=== PATIENT | female | born 1990 | race African-American/Black ===

== ENCOUNTER 2017-09-13 01:47 | Emergency (ER) | payer SELFPAY ==
[2017-09-13 01:57] VITALS: BP 131/97; PULSE 147; TEMP 98.3; BMI 22.1
[2017-09-13] MEDS ORDERED: SODIUM CHLORIDE 1,000 ML IV STA (01:59)
--- NOTE | 2017-09-13 02:02 | PDOC ---
History of Present Illness - General Chief Complaint: Chest Pain Stated Complaint: CHEST TIGHTNESS Time Seen by Provider: 09/13/17 01:57 History Source: Patient - History of Present Illness Initial Comments: 09/13/17 04:31 27-year-old female brought in by boyfriend complaining of palpitations and feeling shaky. Patient reports that 2 hours prior to arrival she smoked marijuana. An hour and a half after patient was feeling chest tightness and palpitations. Denies past medical history Past History - Past Medical History Allergies/Adverse Reactions: Allergies Allergy/AdvReac Type Severity Reaction Status Date / Time No Known Allergies Allergy Verified 09/13/17 01:57 COPD: No - Immunization History Immunization Up to Date: Yes - Suicide/Smoking/Psychosocial Hx Smoking History: Never smoked Substance Use Type: None Review of Systems - Review of Systems Able to Perform ROS?: Yes Is the patient limited Albanian proficient: No Constitutional: No: Symptoms Reported, See HPI, Chills, Diaphoresis, Fever, Loss of Appetite, Malaise, Night Sweats, Weakness, Weight Stable, Unintentional Wgt. Loss, Unexplained wgt Loss, Other HEENTM: No: Symptoms Reported, See HPI, Eye Pain, Blurred Vision, Tearing, Recent change in vision, Double Vision, Cataracts, Ear Pain, Ocular Prothesis, Ear Discharge, Nose Pain, Nose Congestion, Tinnitus, Nose Bleeding, Hearing Loss , Throat Pain, Throat Swelling, Mouth Pain, Dental Problems, Difficulty Swallowing, Mouth Swelling, Other Respiratory: No: Symptoms reported, See HPI, Cough, Orthopnea, Shortness of Breath, SOB with Exertion, SOB at Rest, Stridor, Wheezing, Productive cough, Hemoptysis, Other Cardiac (ROS): Yes: Chest Pain, Lightheadedness, Palpitations ABD/GI: No: Symptoms Reported, See HPI, Abdominal Distended, Abd. Pain w/ defecation, Blood Streaked Bowels, Constipated, Diarrhea, Difficulty Swallowing , Nausea, Poor Appetite, Poor Fluid Intake, Rectal Bleeding, Vomiting, Indigestion, Abdominal cramping, Tarry Stools, Other : No: Symptoms Reported, See HPI, Burning, Dysuria, Discharge, Frequency, Flank Pain, Hematuria, Incontinence, Pain, Urgency, Testicular Mass, Testicular Swelling, Lesions, Testicular Pain, Other *Physical Exam - Vital Signs Last Vital Signs Temp Pulse Resp BP Pulse Ox 98.3 F 147 H 20 131/97 98 09/13/17 01:55 09/13/17 01:55 09/13/17 01:55 09/13/17 01:55 09/13/17 01:55 - Physical Exam General Appearance: Yes: Appropriately Dressed Respiratory/Chest: positive: Lungs Clear, Normal Breath Sounds Cardiovascular: positive: Regular Rate, Tachycardia Heart Score/ECG Review - ECG Intrepretation Rhythm: Regular Rhythm Comment:: 09/13/17 04:32 sinus tachycardia: 144 ED Treatment Course - LABORATORY CBC & Chemistry Diagram: 09/13/17 02:04 09/13/17 02:04 - ADDITIONAL ORDERS Additional order review: Laboratory Results 09/13/17 09/13/17 09/13/17 02:32 02:04 02:04 PT with INR INR Sodium 138 Potassium 3.3 L Chloride 102 Carbon Dioxide 27 Anion Gap 9 BUN 13 Creatinine 0.9 Creat Clearance w eGFR > 60 Random Glucose 129 H Calcium 8.8 Magnesium 2.0 Total Bilirubin 0.3 AST 15 ALT 26 Alkaline Phosphatase 90 Creatine Kinase 103 Troponin I < 0.02 Total Protein 7.7 Albumin 3.8 Serum , Qual Negative Urine Color Straw Urine Appearance Clear Urine pH 6.0 Ur Specific [place] 1.003 Urine Protein Negative Urine Glucose (UA) Negative Urine Ketones Negative Urine Blood 3+ H Urine Nitrite Negative Urine Bilirubin Negative Urine Urobilinogen Negative Ur Leukocyte Esterase Negative Urine WBC (Auto) <1 Urine RBC (Auto) 1 Ur Epithelial Cells Rare Urine Bacteria Rare 09/13/17 02:04 PT with INR 11.90 INR 1.05 Sodium Potassium Chloride Carbon Dioxide Anion Gap BUN Creatinine Creat Clearance w eGFR Random Glucose Calcium Magnesium Total Bilirubin AST ALT Alkaline Phosphatase Creatine Kinase Troponin I Total Protein Albumin Serum , Qual Urine Color Urine Appearance Urine pH Ur Specific [place] Urine Protein Urine Glucose (UA) Urine Ketones Urine Blood Urine Nitrite Urine Bilirubin Urine Urobilinogen Ur Leukocyte Esterase Urine WBC (Auto) Urine RBC (Auto) Ur Epithelial Cells Urine Bacteria 09/13/17 02:04 RBC 4.71 MCV 84.9 MCHC 33.4 RDW 13.0 MPV 8.6 Neutrophils % 46.1 Lymphocytes % 41.2 H Monocytes % 9.3 Eosinophils % 2.8 Basophils % 0.6 - RADIOLOGY Radiology Studies Ordered: Category Date Time Status CHEST X-RAY PORTABLE* [RAD] Stat Radiology 09/13/17 01:58 Taken - Medications Given in the ED: ED Medications Discontinued Medications Generic Name Dose Route Start Last Admin Trade Name Hanna PRN Reason Stop Dose Admin Sodium Chloride 1,000 mls @ 1,000 mls/hr 09/13/17 01:59 09/13/17 02:52 Normal Saline - IV 09/13/17 02:58 1,000 mls/hr ASDIR STA Administration Lorazepam 1 mg 09/13/17 03:30 09/13/17 03:51 Ativan - PO 09/13/17 03:31 1 mg ONCE ONE Administration *DC/Admit/Observation/Transfer Diagnosis at time of Disposition: Tachycardia - Discharge Dispostion Disposition: HOME - Referrals - Patient Instructions Printed Discharge Instructions: DI for Atypical Chest Pain Additional Instructions: please follow up with your doctor as soon as possible. return to the ER if symptoms worsen. - Post Discharge Activity Forms/Work/School Notes: Back to Work
[2017-09-13 02:11] LABS: BASO % 0.6 % (0-2.0); EOS % 2.8 % (0-4.5); HEMOGLOBIN 13.3 GM/dL (10.7-15.3); LYMPH % 41.2 % (8-40); MCH 28.3 pg (25.7-33.7); MCHC 33.4 g/dl (32.0-36.0); MEAN CELL VOLUME 84.9 fl (80-96); MEAN PLT VOLUME 8.6 fl (7.5-11.1); MONO % 9.3 % (3.8-10.2); NEUT % 46.1 % (42.8-82.8); PLATELET COUNT 296 K/MM3 (134-434); RBC 4.71 M/mm3 (3.60-5.2); WHITE BLOOD COUNT 7.9 K/mm3 (4.0-10.0)
[2017-09-13 02:23] LABS: INR 1.05 (0.82-1.09); PROTHROMBIN TIME (PATIENT) 11.9 SEC (9.7-13.0)
[2017-09-13 02:38] LABS: ALBUMIN 3.8 g/dl (3.4-5.0); ANION GAP 9 (8-16); BILIRUBIN,TOTAL 0.3 mg/dL (0.2-1.0); BLOOD UREA NITROGEN 13 mg/dL (7-18); CALCIUM 8.8 mg/dL (8.5-10.1); CHLORIDE 102 mmol/L (98-107); CO2 27 mmol/L (21-32); CREATININE 0.9 mg/dL (0.55-1.02); GLUCOSE,RANDOM 129 mg/dL (74-106); POTASSIUM 3.3 mmol/L (3.5-5.1); SGOT/AST 15 U/L (15-37); SGPT/ALT 26 U/L (12-78); SODIUM 138 mmol/L (136-145); TOT PROT 7.7 g/dl (6.4-8.2)
[2017-09-13 02:41] LABS: ALK PHOS 90 U/L (45-117)
[2017-09-13 02:42] LABS: URINE APPEARANCE CLEAR; URINE BILIRUBIN NEGATIVE (<2.0 mg/dL); URINE COLOR STRAW; URINE GLUCOSE (UA) NEGATIVE (NEGATIVE); URINE KETONE NEGATIVE (NEGATIVE); URINE LEUK ESTERASE NEGATIVE (NEGATIVE); URINE NITRITE NEGATIVE (NEGATIVE); URINE PROTEIN NEGATIVE (NEGATIVE); URINE UROBILINOGEN NEGATIVE mg/dL (0.2-1.0)
[2017-09-13 02:44] LABS: EPI CELLS RARE /HPF (FEW); URINE BACTERIA RARE /hpf (NONE SEEN)
[2017-09-13] MEDS ORDERED: LORazepam 1 MG TABLET PO ONE (03:30)
[2017-09-13] MEDS ORDERED: LORazepam 0.5 MG TABLET ONE (03:50)
--- NOTE | 2017-09-13 10:42 | EKG ---
Test Reason : Blood Pressure : / mmHG Vent. Rate : 144 BPM Atrial Rate : 144 BPM P-R Int : 000 ms QRS Dur : 090 ms QT Int : 342 ms P-R-T Axes : 000 026 063 degrees QTc Int : 529 ms SINUS TACHYCARDIA RSR' OR QR PATTERN IN V1 SUGGESTS RIGHT VENTRICULAR CONDUCTION DELAY SEPTAL INFARCT , AGE UNDETERMINED ABNORMAL ECG NO PREVIOUS ECGS AVAILABLE Confirmed by CHARLES BARRAZA, FIORELLA ([id number]) on 09/13/2017 10:41:59 AM Referred By: Confirmed By:FIORELLA SOTO MD
[2017-09-13 14:05] LABS: COCAINE, UR NEGATIVE ng/ml (CUTOFF=300); METHADONE, UR NEGATIVE ng/ml (CUTOFF=300); OPIATES, URI NEGATIVE ng/ml (CUTOFF=300); PHENCYCLIDINE,URINE NEGATIVE ng/ml (CUTOFF=25); URINE AMPHETAMINES NEGATIVE ng/ml (CUTOFF=500); URINE BARBITURATES NEGATIVE ng/ml (CUTOFF=200); URINE BENZODIAZEPINES NEGATIVE ng/ml (CUTOFF=200)
== END 2017-09-13 04:55 | disposition home or self-care (01) ==
LOC: JER 01:47
PROC: 3E0337Z Introduction of Electrolytic and Water Balance Substance into Peripheral Vein, Percutaneous Approach (ICD-10-PCS; principal; 2017-09-13)
DX: R00.0 Tachycardia, unspecified (principal)
CPT/HCPCS: 36415; 71045-TC-FY; 80053; 80307; 81003; 81015; 82550; 83735; 84484; 84703; 85025; 85610; 93005; 93010; 99282-25; J7030

== ENCOUNTER 2018-06-07 02:25 | Emergency (ER) | payer OTHER ==
[2018-06-07 02:48] VITALS: BMI 30.1
[2018-06-07] MEDS ORDERED: FAMOTIDINE 20 MG/50 ML IVPB 20 MG/50 ML MG IVPB ONE ×2 (03:03→03:16)
[2018-06-07] MEDS ORDERED: METOCLOPRAMIDE HCL INJECTION 10 MG/2 ML VIAL IVPUSH ONE (03:03)
[2018-06-07] MEDS ORDERED: SODIUM CHLORIDE 1,000 ML IV STA (03:03)
--- NOTE | 2018-06-07 03:03 | PDOC ---
Attending Attestation - Resident Resident Name: Nikhil Abraham - ED Attending Attestation I have performed the following: I have examined & evaluated the patient, The case was reviewed & discussed with the resident, I agree w/resident's findings & plan - HPI HPI: 06/07/18 03:10 28-year-old female, 35 weeks to stay solids with vomiting Patient states she vomited mucus mixed with blood, she has a picture on her phone of the vomitus There is no associated diarrhea abdominal pain vaginal bleeding or fever - Physicial Exam PE: 06/07/18 03:11 Agree with resident's exam - Medical Decision Making 06/07/18 03:11 28-year-old gravid female with a vomiting/hematemesis by history Bedside ultrasound performed to confirm live fetus Labs, IV fluids, Reglan and Pepcid Plan for discharge home if improved with outpatient OB follow-up
[2018-06-07] MEDS ORDERED: METOCLOPRAMIDE HCL INJECTION 10 MG/2 ML VIAL ONE (03:16)
[2018-06-07 03:24] LABS: BASO % 0.7 % (0-2.0); EOS % 0.9 % (0-4.5); HEMATOCRIT 34.7 % (32.4-45.2); HEMOGLOBIN 11.8 GM/dL (10.7-15.3); LYMPH % 23.9 % (8-40); MCH 27.7 pg (25.7-33.7); MEAN CELL VOLUME 81.5 fl (80-96); MEAN PLT VOLUME 7.9 fl (7.5-11.1); MONO % 9.2 % (3.8-10.2); NEUT % 65.3 % (42.8-82.8); PLATELET COUNT 279 K/MM3 (134-434); RBC 4.26 M/mm3 (3.60-5.2); RDW 13.6 % (11.6-15.6); WHITE BLOOD COUNT 10.2 K/mm3 (4.0-10.0)
[2018-06-07 03:34] LABS: URINE APPEARANCE SLCLOUDY; URINE BILIRUBIN NEGATIVE (<2.0 mg/dL); URINE COLOR LTYELLOW; URINE GLUCOSE (UA) 3+ (NEGATIVE); URINE KETONE NEGATIVE (NEGATIVE); URINE LEUK ESTERASE 3+ (NEGATIVE); URINE NITRITE NEGATIVE (NEGATIVE); URINE PROTEIN NEGATIVE (NEGATIVE); URINE UROBILINOGEN NEGATIVE mg/dL (0.2-1.0)
--- NOTE | 2018-06-07 03:43 | PDOC ---
History of Present Illness - General Chief Complaint: Vomiting Blood Stated Complaint: 8 MONTHS VOMITING BLOOD Time Seen by Provider: 06/07/18 02:42 History Source: Patient Exam Limitations: No Limitations - History of Present Illness Initial Comments: 06/07/18 03:19 Patient is a 28F at 8 months here today complaining of vomiting that started this morning. Patient has pictures showing small amount of bright red blood in vomit. Denies fevers, chills. Denies abdominal pain. Patient states that she ate later than normal today and has been having issues with GERD. Denies chest pain and shortness of breath. Denies dysuria, vaginal bleeding. Past History - Past Medical History Allergies/Adverse Reactions: Allergies Allergy/AdvReac Type Severity Reaction Status Date / Time No Known Allergies Allergy Verified 06/07/18 02:34 Home Medications: Ambulatory Orders Vitamins (Sjr) - 1 tab PO DAILY 05/14/18 Nitrofurantoin Monohyd/M-Cryst [Macrobid -] 100 mg PO BID #10 capsule 06/07/18 COPD: No - Immunization History Immunization Up to Date: Yes - Suicide/Smoking/Psychosocial Hx Smoking History: Never smoked Have you smoked in the past 12 months: No Information on smoking cessation initiated: No Hx Alcohol Use: No Drug/Substance Use Hx: No Substance Use Type: None Review of Systems - Review of Systems Able to Perform ROS?: Yes Comments:: 06/07/18 03:43 GENERAL/CONSTITUTIONAL: No fever or chills. No weakness. HEAD, EYES, EARS, NOSE AND THROAT: No change in vision. No ear pain or discharge. No sore throat. CARDIOVASCULAR: No chest pain or shortness of breath RESPIRATORY: No cough, wheezing, or hemoptysis. GASTROINTESTINAL: +nausea, +vomiting, no diarrhea or constipation. GENITOURINARY: No dysuria, frequency, or change in urination. MUSCULOSKELETAL: No joint or muscle swelling or pain. No neck or back pain. SKIN: No rash NEUROLOGIC: No headache, vertigo, loss of consciousness, or change in strength/ sensation. HEMATOLOGIC/LYMPHATIC: No anemia, easy bleeding, or history of blood clots. ALLERGIC/IMMUNOLOGIC: No hives or skin allergy. *Physical Exam - Vital Signs Last Vital Signs Temp Pulse Resp BP Pulse Ox 98.5 F 120 H 18 129/93 100 06/07/18 02:34 06/07/18 02:34 06/07/18 02:34 06/07/18 02:34 06/07/18 02:34 - Physical Exam Comments: 06/07/18 03:51 GENERAL: Awake, alert, and fully oriented, in no acute distress HEAD: No signs of trauma, normocephalic, atraumatic EYES: PERRLA, EOMI, sclera anicteric, conjunctiva clear ENT: Auricles normal inspection, hearing grossly normal, nares patent, oropharynx clear without exudates. Moist mucosa NECK: Normal ROM, supple, no lymphadenopathy, JVD, or masses LUNGS: No distress, speaks full sentences, clear to auscultation bilaterally HEART: Regular rate and rhythm, normal S1 and S2, no murmurs, rubs or gallops, peripheral pulses normal and equal bilaterally. ABDOMEN: Gravid, nontender, normoactive bowel sounds. No guarding, no rebound. No masses EXTREMITIES: Normal inspection, Normal range of motion, no edema. No clubbing or cyanosis. NEUROLOGICAL: Cranial nerves II through XII grossly intact. Normal speech, normal gait, no focal sensorimotor deficits SKIN: Warm, Dry, normal turgor, no rashes or lesions noted. Moderate Sedation - Procedure Monitoring Vital Signs: Procedure Monitoring Vital Signs Temperature 98.5 F 06/07/18 02:34 Pulse Rate 120 H 06/07/18 02:34 Respiratory Rate 18 06/07/18 02:34 Blood Pressure 129/93 06/07/18 02:34 O2 Sat by Pulse Oximetry (%) 100 06/07/18 02:34 ED Treatment Course - LABORATORY CBC & Chemistry Diagram: 06/07/18 03:13 06/07/18 03:13 Medical Decision Making - Medical Decision Making 06/07/18 03:51 Patient is 28F at 8 months here today with vomiting. Vitals normal and stable. No signs of large GI bleed, suspect Alejandra-Damián. Nontender abdomen. POCUS US shows normal heart rate and movement. Will evaluate with cbc, cmp, lipase, ua/uc, likely will d/c to l&d. *DC/Admit/Observation/Transfer Diagnosis at time of Disposition: UTI (urinary tract infection), Vomiting - Discharge Dispostion Disposition: HOME Condition at time of disposition: Good Decision to Admit order: No - Prescriptions Prescriptions: Nitrofurantoin Monohyd/M-Cryst [Macrobid -] 100 mg PO BID #10 capsule - Referrals Referrals: Mikal Cam [Primary Care Provider] - - Patient Instructions Printed Discharge Instructions: DI for Urinary Tract Infection (UTI) Additional Instructions: Please follow up tomorrow with your OBGYN. Please return if you have any new, worsening or concerning symptoms, especially abdominal pain, repeated vomiting, and shortness of breath. - Post Discharge Activity
[2018-06-07 03:50] LABS: ALBUMIN 2.6 g/dl (3.4-5.0); ALK PHOS 149 U/L (45-117); ANION GAP 6 MMOL/L (8-16); BILIRUBIN,TOTAL 0.2 mg/dL (0.2-1); BLOOD UREA NITROGEN 9 mg/dL (7-18); CALCIUM 8.5 mg/dL (8.5-10.1); CHLORIDE 107 mmol/L (98-107); CO2 26 mmol/L (21-32); CREATININE 0.6 mg/dL (0.55-1.3); GLUCOSE,RANDOM 87 mg/dL (74-106); LIPASE 129 U/L (73-393); SGOT/AST 15 U/L (15-37); SGPT/ALT 20 U/L (13-61); SODIUM 139 mmol/L (136-145); TOT PROT 6.8 g/dl (6.4-8.2)
[2018-06-07 04:14] LABS: EPI CELLS MANY /HPF (FEW); URINE BACTERIA RARE /hpf (NONE SEEN); URINE MUCUS RARE
[2018-06-07] MEDS ORDERED: NITROFURANTOIN MACROCRYSTAL 50 MG CAPSULE (FP) PO SCH (04:30)
[2018-06-07] MEDS ORDERED: NITROFURANTOIN MACROCRYSTAL 50 MG CAPSULE (FP) ONE (04:34)
[2018-06-07 05:10] VITALS: TEMP 97.9
[2018-06-07 05:18] VITALS: BP 122/77; PULSE 87
== END 2018-06-07 05:50 | disposition home or self-care (01) ==
LOC: JER 02:25
PROC: 3E033GC Introduction of Other Therapeutic Substance into Peripheral Vein, Percutaneous Approach (ICD-10-PCS; principal; 2018-06-07)
PROC: 3E033GC Introduction of Other Therapeutic Substance into Peripheral Vein, Percutaneous Approach (ICD-10-PCS; 2018-06-07)
DX: O26.893 Other specified pregnancy related conditions, third trimester (principal); O23.33 Infections of other parts of urinary tract in pregnancy, third trimester; Z3A.35 35 weeks gestation of pregnancy
CPT/HCPCS: 36415; 80053; 81003; 81015; 83690; 85025; 87086; 99281-25; J7030

== ENCOUNTER 2018-07-01 03:20 | Inpatient (IN) | payer OTHER ==
[2018-07-01] MEDS ORDERED: ELECTROLYTE-148 SOLN 1,000 ML IV SCH (03:40)
[2018-07-01] MEDS ORDERED: AMPICILLIN SODIUM 2 GM VIAL ONE (04:44)
[2018-07-01] MEDS ORDERED: AMPICILLIN - 2 GM in SODIUM CHLORIDE 100 ML IVPB ONE (04:45)
[2018-07-01] MEDS ORDERED: FENTANYL/BUPIVACAINE/NS/PF - PCEA - 50 ML DISP.SYRIN EP ONE (05:34)
[2018-07-01 05:35] LABS: BASO % 0.2 % (0-2.0); EOS % 0.1 % (0-4.5); HEMATOCRIT 35.7 % (32.4-45.2); HEMOGLOBIN 11.7 GM/dL (10.7-15.3); LYMPH % 12.5 % (8-40); MCH 25.7 pg (25.7-33.7); MCHC 32.8 g/dl (32.0-36.0); MEAN CELL VOLUME 78.4 fl (80-96); MEAN PLT VOLUME 8.2 fl (7.5-11.1); MONO % 5.4 % (3.8-10.2); NEUT % 81.8 % (42.8-82.8); PLATELET COUNT 266 K/MM3 (134-434); RBC 4.56 M/mm3 (3.60-5.2); RDW 14.3 % (11.6-15.6); WHITE BLOOD COUNT 12.7 K/mm3 (4.0-10.0)
[2018-07-01 05:47] LABS: INR 0.95 (0.83-1.09); PROTHROMBIN TIME (PATIENT) 11.2 SEC (9.7-13.0)
[2018-07-01 05:49] LABS: ACTIVATED PTT 30.1 SECONDS (25.2-36.5)
[2018-07-01 05:52] LABS: ANION GAP 10 MMOL/L (8-16); BLOOD UREA NITROGEN 8 mg/dL (7-18); CALCIUM 8.5 mg/dL (8.5-10.1); CHLORIDE 104 mmol/L (98-107); CO2 23 mmol/L (21-32); CREATININE 0.6 mg/dL (0.55-1.3); GLUCOSE,RANDOM 109 mg/dL (74-106); SODIUM 137 mmol/L (136-145)
[2018-07-01 05:54] VITALS: BMI 28.1
[2018-07-01] MEDS ORDERED: NALOXONE HCL 0.4 MG/ML VIAL IVPUSH PRN (07:46)
[2018-07-01] MEDS ORDERED: AMPICILLIN SODIUM 1 GM VIAL ONE (08:00)
[2018-07-01] MEDS ORDERED: FENTANYL/BUPIVACAINE/NS/PF - PCEA - 50 ML DISP.SYRIN EP SCH (08:00)
[2018-07-01] MEDS ORDERED: LIDOCAINE HCL 1% PRESERVATIVE FREE - 30ML VIAL ONE (08:22)
[2018-07-01] MEDS ORDERED: OXYTOCIN 20 UNITS in 0.9% NS 20 UNIT/1,000 ML INFUS.BAG IV ONE (08:22)
[2018-07-01] MEDS: AMPICILLIN - 1 GM in SODIUM CHLORIDE 100 ML IVPB SCH ×2 (08:45→14:08)
[2018-07-01] MEDS ORDERED: TUBERCULIN PPD 5 TU/0.1ML SYRINGE (IN PATIENT USE ONLY) ID ONE (09:00)
--- NOTE | 2018-07-01 11:16 | HP ---
Past Medical History - Primary Care Physician PCP:: Adrien Garza - Admission Chief Complaint: 28yo P0 with at EGA 39wk admitted with spont labor. History of Present Illness: with spont labor since yesterday. 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: No: Alzheimer's, CVA, Dementia, Migraine, Multiple Sclerosis, Peripheral Neuropathy, Parkinson's, Seizure, Syncope, TIA, Vertigo, Other Cardiovascular: No: AFIB, Aneurysm, Aortic Insufficiency, Aortic Stenosis, CAD, CHF, Deep Vein Thrombosis, HTN, Hyperlipdemia, GA, Mitral Insufficiency, Mitral Stenosis, Murmur, Pulmonary Hypertension, Other Pulmonary: No: Asthma, Bronchitis, Cancer, COPD, O2 Dependent, Pneumonia, Previously Intubated, Pulmonary Embolus, Pulmonary Fibrosis, Sleep Apnea, Other Gastrointestinal: No: Ascites, Cancer, Constipation, Crohn's Disease, Diverticulitis, Diverticulosis, Esophageal Varices, Gastritis, GERD, GI Bleed, Hemorrhoids, Hiatal Hernia, Inflamatory Bowel Disease, Irritable Bowel Disease, Pancreatitis, Peptic Ulcer Disease, Ulcerative Colitis, Other Hepatobiliary: No: Cirrhosis, Cholelithiasis, Cholecystitis, Choledocholithiasis , Hepatitis A, Hepatitis B, Hepatitis C, Other Renal/: No: Renal Failure, Renal Inusuff, BPH, Cancer, Hematuria, Hemodialysis , Neurogenic Bladder, Renal Calculi, UTI, Other Reproductive: Yes: Fibroids ...: 1 ...Para: 0 ... Weeks Gestation by Dates: 39.0 ...EDC by Dates: 07/08/18 ...EDC by Sono: 07/08/18 Heme/Onc: No: Anemia, B12 Deficiency, Bleeding Disorder, Cancer, Current Chemotherapy, Current Radiation Therapy, Hemochromatosis, Hypercoaguable State, Myeloproliferative Synd, Sickle Cell Disease, Sickle Cell Trait, Thrombocytopenia, Other Infectious Disease: No: AIDS, C-Diff, Herpes Zoster, HIV, MRSA, STD's, Tuberculosis, VREF, Other Psych: Yes: Anxiety Musculoskeletal: No: Bursitis, Chronic low back pain, Hemiparesis, Hemiplegia, Osteoarthritis, Paraplegia, Other Rheumatology: No: Fibromyalgia, Gout, Lupus, Rheumatoid Arthritis, Sarcoidosis, Vasculitis, Other ENT: No: Allergic Rhinitis, Sinusitis, Other Endocrine: No: [place]'s Disease, [place]'s Disease, Diabetes Insipidus, Diabetes Mellitus, Hyperparathyroidism, Hyperthyroidism, Hypothyroidism, Osteopenia, SIADH, Other Dermatology: No: Basal Cell, Cellulitis, Eczema, Melanoma, Psoriasis, Squamous Cell, Other - Past Surgical History Past Surgical History: Yes: None Hx Myomectomy: No Hx Transabdominal Cerclage: No - Smoking History Smoking history: Never smoked Have you smoked in the past 12 months: No - Alcohol/Substance Use Hx Alcohol Use: No History of Substance Use: reports: None - Social History ADL: Independent History of Recent Travel: No Home Medications - Allergies Allergies/Adverse Reactions: Allergies Allergy/AdvReac Type Severity Reaction Status Date / Time No Known Allergies Allergy Verified 07/01/18 05:16 - Home Medications Home Medications: Ambulatory Orders Vitamins (Sjr) - 1 tab PO DAILY 07/01/18 Family Disease History - Family Disease History Family History: Unremarkable Review of Systems - Review of Systems Constitutional: reports: Other (Labor) Eyes: reports: No Symptoms HENT: reports: No Symptoms Neck: reports: No Symptoms Cardiovascular: reports: No Symptoms Respiratory: reports: No Symptoms Gastrointestinal: reports: No Symptoms Genitourinary: reports: No Symptoms Breasts: reports: No Symptoms Reported Musculoskeletal: reports: No Symptoms Integumentary: reports: No Symptoms Neurological: reports: No Symptoms Endocrine: reports: No Symptoms Hematology/Lymphatic: reports: No Symptoms Psychiatric: reports: No Symptoms Pain Intensity: 0 (epidural) Physical Exam - Maternity Vital Signs: Vital Signs Temperature 97.9 F 07/01/18 10:00 Pulse Rate 115 H 07/01/18 10:30 Respiratory Rate 18 07/01/18 10:30 Blood Pressure 109/71 07/01/18 10:30 O2 Sat by Pulse Oximetry (%) 99 07/01/18 10:30 Constitutional: Yes: Well Nourished, No Distress, Calm Eyes: Yes: WNL, Conjunctiva Clear HENT: Yes: WNL, Atraumatic, Normocephalic Neck: Yes: WNL, Supple, Trachea Midline Cardiovascular: Yes: WNL, Regular Rate and Rhythm Lungs: Clear to auscultation, Normal air movement - Abdominal Exam/OB Fundal Height: 40 Number of Fetuses: Single Presentation: Vertex Regularity: Regular Intensity: Mod/Strong Monitor Mode: External Heart Rate (range): 140 Heart Rate Location: Midline Category: I Accelerations: Non-Uniform Decelerations: None - Vaginal Exam/OB Vaginal Bleediing: No Presentation: Vertex/Position - Physical Exam Musculoskeletal: Yes: WNL Extremities: Yes: WNL Edema: LLE: Trace, RLE: Trace Integumentary: Yes: WNL Deep Tendon Reflex Grade: Hyperactive w/clonus +5 ...Motor Strength: WNL Psychiatric: Yes: WNL, Alert, Oriented - Labs Lab Results: CBC, BMP 07/01/18 05:00 07/01/18 05:00 Hemorrhage Risk Assessment - Risk Factors Medium Risk Factors: Yes: None High Risk Factors: Yes: None Risk Score: 1 Risk Level: Medium Risk Imaging - Results Ultrasound: Report Reviewed Assessment/Plan 28yo P0 with at EGA 39wk admitted with spont labor. Fetus with Category I tracing and needs no intervention. Anticipate .
[2018-07-01] MEDS ORDERED: BENZOCAINE 20% 57 GM BOTTLE TP PRN (11:45)
[2018-07-01] MEDS ORDERED: SIMETHICONE 80 MG TAB.CHEW (FP) PO PRN (11:45)
[2018-07-01] MEDS ORDERED: WITCH HAZEL 50% (TUCKS) 40 PAD/JAR PAD TP PRN (11:45)
[2018-07-01] MEDS ORDERED: BENZOCAINE 28 GM HEMORRHOIDAL OINTMENT TP PRN (11:45)
[2018-07-01] MEDS ORDERED: OXYTOCIN 20 UNITS in 0.9% NS 20 UNIT/1,000 ML INFUS.BAG IV SCH (11:45)
[2018-07-01] MEDS ORDERED: METHYLERGONOVINE MALEATE 0.2 MG/1 ML AMP IM PRN (11:45)
[2018-07-01] MEDS ORDERED: SENNOSIDES/DOCUSATE COMBO (SENNA PLUS) TABLET (UD) PO PRN (11:45)
[2018-07-02 06:55] LABS: BASO % 0.8 % (0-2.0); EOS % 0.7 % (0-4.5); HEMATOCRIT 30.3 % (32.4-45.2); HEMOGLOBIN 9.8 GM/dL (10.7-15.3); LYMPH % 23.1 % (8-40); MCH 25.5 pg (25.7-33.7); MCHC 32.4 g/dl (32.0-36.0); MEAN CELL VOLUME 78.8 fl (80-96); MEAN PLT VOLUME 8.3 fl (7.5-11.1); MONO % 7.9 % (3.8-10.2); NEUT % 67.5 % (42.8-82.8); PLATELET COUNT 212 K/MM3 (134-434); RBC 3.85 M/mm3 (3.60-5.2); RDW 14.4 % (11.6-15.6); WHITE BLOOD COUNT 11.1 K/mm3 (4.0-10.0)
--- NOTE | 2018-07-02 08:18 | PN ---
Delivery - Delivery Vaginal Delivery: No Problems, Spontaneous Type of Anesthesia: Local, Epidural Episiotomy/Laceration: Perineal Extension/lac, 1st degree EBL (cc): 300 Delivery, Single - Stages of Labor Date 1st Stage Initiatied: 07/01/18 Time 1st Stage Initiated: 01:00 Date 2nd Stage Initiated: 07/01/18 Time 2nd Stage Initiated: 10:55 Date of Delivery: 07/01/18 Time of Delivery: 11:33 Time Placenta Delivered: 11:40 Placenta: Yes: Spontaneous, Normal Configuration - Condition of Congressional Assistant/Management Engineer Present: No Gender: Female Weight: 2.977 kg Position: Left, OA Total Hours ROM (Hrs/Mins): 40M - 1 Minute Total Score: 9 5 Minutes Total Score: 9 - [place] Feeding Plan Initial Plan: Exclusive throughout hospitalization
--- NOTE | 2018-07-02 08:20 | PN ---
Post Progress Note - Subjective Subjective: Patient without acute complaints. Reports tolerating oral intake without nausea or vomiting. Ambulating without dizziness. Denies fevers or chills. Pain well controlled with oral pain medication. Pumping/breast feeding without issue. Post Day: 1 Type of Delivery: Vital Signs: Vital Signs Temperature 98.0 F 07/02/18 06:00 Pulse Rate 92 H 07/02/18 06:00 Respiratory Rate 20 07/02/18 06:00 Blood Pressure 106/62 07/02/18 06:00 O2 Sat by Pulse Oximetry (%) 99 07/01/18 10:30 Breast Exam: Yes: Soft Uterus: Yes: Fundus Firm, Fundus below umbilicus Abdomen/GI: Yes: Abdomen soft, Passing flatus, Tolerating PO Lochia: Yes: Rubra Lochia, amount: Small Extremities: Yes: Calves non-tender Perineum: Yes: Intact Activity: Ambulating - Labs Labs: CBC WBC 11.1 K/mm3 (4.0-10.0) H 07/02/18 05:10 RBC 3.85 M/mm3 (3.60-5.2) 07/02/18 05:10 Hgb 9.8 GM/dL (10.7-15.3) L 07/02/18 05:10 Hct 30.3 % (32.4-45.2) L D 07/02/18 05:10 MCV 78.8 fl (80-96) L 07/02/18 05:10 MCH 25.5 pg (25.7-33.7) L 07/02/18 05:10 MCHC 32.4 g/dl (32.0-36.0) 07/02/18 05:10 RDW 14.4 % (11.6-15.6) 07/02/18 05:10 Plt Count 212 K/MM3 (134-434) D 07/02/18 05:10 MPV 8.3 fl (7.5-11.1) 07/02/18 05:10 Absolute Neuts (auto) 7.5 K/mm3 (1.5-8.0) 07/02/18 05:10 Neutrophils % 67.5 % (42.8-82.8) 07/02/18 05:10 Lymphocytes % 23.1 % (8-40) D 07/02/18 05:10 Monocytes % 7.9 % (3.8-10.2) 07/02/18 05:10 Eosinophils % 0.7 % (0-4.5) D 07/02/18 05:10 Basophils % 0.8 % (0-2.0) D 07/02/18 05:10 Nucleated RBC % 0 % (0-0) 07/02/18 05:10 Assessment/Plan 28 yo P1 s/p , doing well stable, afebrile. Asymptomatic for anemia. care instructions reviewed. Continue routine care. Ambulation encouraged Discharge instruction reviewed.
--- NOTE | 2018-07-02 08:23 | DS ---
Physical Exam-TRAFFIC I MANAGER Vital Signs: Vital Signs Temperature 98.0 F 07/02/18 06:00 Pulse Rate 92 H 07/02/18 06:00 Respiratory Rate 20 07/02/18 06:00 Blood Pressure 106/62 07/02/18 06:00 O2 Sat by Pulse Oximetry (%) 99 07/01/18 10:30 Constitutional: Yes: Well Nourished, No Distress, Calm Eyes: Yes: WNL, Conjunctiva Clear HENT: Yes: WNL, Atraumatic, Normocephalic Neck: Yes: WNL, Supple, Trachea Midline Cardiovascular: Yes: WNL, Regular Rate and Rhythm Respiratory: Yes: WNL, Regular, CTA Bilaterally Gastrointestinal: Yes: WNL, Normal Bowel Sounds, Soft ...Rectal Exam: Yes: Deferred Renal/: Yes: WNL Internal Exam Deferred: Yes ....Post : Yes: Uterus firm, Uterus non-tender, Slight lochia rubra Breast(s): Yes: WNL Musculoskeletal: Yes: WNL Extremities: Yes: WNL Edema: No Integumentary: Yes: WNL Neurological: Yes: WNL, Alert, Oriented ...Motor Strength: WNL Psychiatric: Yes: WNL, Alert, Oriented Labs: CBC, BMP 07/02/18 05:10 07/01/18 05:00 Delivery - Delivery Vaginal Delivery: No Problems, Spontaneous Type of Anesthesia: Local, Epidural Episiotomy/Laceration: Perineal Extension/lac, 1st degree EBL (cc): 300 Delivery, Single - Stages of Labor Date 1st Stage Initiatied: 07/01/18 Time 1st Stage Initiated: 01:00 Date 2nd Stage Initiated: 07/01/18 Time 2nd Stage Initiated: 10:55 Date of Delivery: 07/01/18 Time of Delivery: 11:33 Time Placenta Delivered: 11:40 Placenta: Yes: Spontaneous, Normal Configuration - Condition of Infant Health And Safety Technician/Junior Underwriter Present: No Infant Gender: Female Weight: 2.977 kg Position: Left, OA Total Hours ROM (Hrs/Mins): 40M - 1 Minute Total Score: 9 5 Minutes Total Score: 9 - [place] Feeding Plan Initial Plan: Exclusive throughout hospitalization Discharge Summary Reason For Visit: LABOR ADMIT Labor at term Procedures: Principal: Hospital Course: Normal recovery Condition: Good - Instructions Diet, Activity, Other Instructions: Physical activity Resume your normal everyday activity as tolerated no heavy lifting or exercise until seen by your surgeon. You may walk unlimited kyle of and climb stairs. You may resume driving the car when you feel safe and comfortable behind the wheel. No sexual activity as instructed. Wound care If you have a bandage, leave it on, and keep dry for 48-72 hours. After that time discard the outer bandage. If they are tapes on the skin under the out of bandage leave them in place. They will peel off in the next 7 to 10 days. Do Not Peel them off. You may shower the day after surgery. If there are tapes present on the skin, you may shower over them. Diet There are no dietary restrictions. Eat healthy, high-fiber foods. Drink 6 to 8 glasses of liquid each day. This will assist in keeping your bowels are regular. Pain management You may take Tylenol or acetaminophen or Ibuprofen (for example, Motrin, Advil etc.) from my pain prescription medication is ordered should be taken as prescribed for moderate to severe pain. Call MD for any of the following: Severe pain not relieved by medication Fever of 101 or higher Excessive bleeding or drainage on dressing Inability to urinate Referrals: Nichole Myers MD [Staff Physician] - Disposition: HOME - Home Medications Comprehensive Discharge Medication List: Ambulatory Orders RX: Vitamins (Sjr) - 1 tab PO DAILY 07/01/18
[2018-07-02] MEDS: IBUPROFEN 600 MG TABLET (FP) PO PRN ×2 (08:41→16:24)
[2018-07-02] MEDS: ACETAMINOPHEN 325 MG TABLET (FP) PO PRN ×2 (08:42→16:24)
[2018-07-02] MEDS: PRENATAL VITAMINS W/ FOLIC ACID TABLET (FP) PO SCH (10:28)
[2018-07-02] MEDS ORDERED: BISACODYL 10 MG SUPP.RECT RC PRN (11:45)
--- NOTE | 2018-07-03 07:18 | PN ---
Post Progress Note - Subjective Subjective: Patient without acute complaints. Reports tolerating oral intake without nausea or vomiting. Ambulating without dizziness. Denies fevers or chills. Pain well controlled with oral pain medication. Pumping without difficulty. Passing flatus. Post Day: 2 Type of Delivery: Vital Signs: Vital Signs Temperature 99.0 F 07/02/18 21:38 Pulse Rate 78 07/02/18 21:38 Respiratory Rate 20 07/02/18 21:38 Blood Pressure 130/62 07/02/18 21:38 O2 Sat by Pulse Oximetry (%) 99 07/01/18 10:30 Breast Exam: Yes: Soft Uterus: Yes: Fundus Firm Abdomen/GI: Yes: Abdomen soft, Tolerating PO Lochia: Yes: Rubra Lochia, amount: Small Extremities: Yes: Calves non-tender - Labs Labs: CBC WBC 11.1 K/mm3 (4.0-10.0) H 07/02/18 05:10 RBC 3.85 M/mm3 (3.60-5.2) 07/02/18 05:10 Hgb 9.8 GM/dL (10.7-15.3) L 07/02/18 05:10 Hct 30.3 % (32.4-45.2) L D 07/02/18 05:10 MCV 78.8 fl (80-96) L 07/02/18 05:10 MCH 25.5 pg (25.7-33.7) L 07/02/18 05:10 MCHC 32.4 g/dl (32.0-36.0) 07/02/18 05:10 RDW 14.4 % (11.6-15.6) 07/02/18 05:10 Plt Count 212 K/MM3 (134-434) D 07/02/18 05:10 MPV 8.3 fl (7.5-11.1) 07/02/18 05:10 Absolute Neuts (auto) 7.5 K/mm3 (1.5-8.0) 07/02/18 05:10 Neutrophils % 67.5 % (42.8-82.8) 07/02/18 05:10 Lymphocytes % 23.1 % (8-40) D 07/02/18 05:10 Monocytes % 7.9 % (3.8-10.2) 07/02/18 05:10 Eosinophils % 0.7 % (0-4.5) D 07/02/18 05:10 Basophils % 0.8 % (0-2.0) D 07/02/18 05:10 Nucleated RBC % 0 % (0-0) 07/02/18 05:10 Assessment/Plan 28yo P1 now s/p doing well VSS, Afebrile D/C today NPV x 6 wks RTO 4-6 weeks
[2018-07-03] MEDS: IBUPROFEN 600 MG TABLET (FP) PO PRN ×2 (08:38→11:34)
[2018-07-03] MEDS: ACETAMINOPHEN 325 MG TABLET (FP) PO PRN ×2 (08:39→11:33)
[2018-07-03 09:44] VITALS: BP 129/88; PULSE 84; TEMP 98.6
[2018-07-03] MEDS: PRENATAL VITAMINS W/ FOLIC ACID TABLET (FP) PO SCH (10:20)
== END 2018-07-03 14:05 | disposition home or self-care (01) | DRG 560 ==
LOC: JDEL 03:20 → JLDR 03:40 → JDEL 03:58 → J3W 14:07
PROVIDERS: ADMIT Obstetrics & Gynecology; ATTEND Obstetrics & Gynecology
PROC: 10E0XZZ Delivery of Products of Conception, External Approach (ICD-10-PCS; principal; 2018-07-01)
PROC: 0HQ9XZZ Repair Perineum Skin, External Approach (ICD-10-PCS; 2018-07-01)
DX: O99.02 Anemia complicating childbirth (principal); O99.214 Obesity complicating childbirth; E66.9 Obesity, unspecified; D64.9 Anemia, unspecified; O34.13 Maternal care for benign tumor of corpus uteri, third trimester; D25.9 Leiomyoma of uterus, unspecified; O70.0 First degree perineal laceration during delivery; Z3A.39 39 weeks gestation of pregnancy; Z37.0 Single live birth
CPT/HCPCS: 36415; 59025; 80048; 85025; 85610; 85730; 86593; 86850; 86900; 86901

== ENCOUNTER 2021-02-05 20:35 | Inpatient (IN) | payer OTHER ==
[2021-02-05] MEDS ORDERED: ELECTROLYTE-148 SOLN 1,000 ML IV SCH (22:00)
[2021-02-05 22:30] VITALS: BMI 33.4
[2021-02-05] MEDS ORDERED: BUTORPHANOL TARTRATE 2 MG/ML VIAL ONE (22:44)
[2021-02-05] MEDS ORDERED: PROMETHAZINE HCL 25 MG/1 ML VIAL ONE (22:45)
[2021-02-05] MEDS ORDERED: PROMETHAZINE HCL 25 MG/1 ML VIAL IVPUSH ONE (22:45)
[2021-02-05] MEDS ORDERED: BUTORPHANOL TARTRATE 1 MG/ML VIAL IVPUSH ONE (22:45)
[2021-02-05 22:55] LABS: BASO % 0.4 % (0-2.0); EOS % 0.2 % (0-4.5); HEMATOCRIT 35.2 % (32.4-45.2); HEMOGLOBIN 11.4 GM/dL (10.7-15.3); LYMPH % 20.1 % (8-40); MCHC 32.3 g/dl (32.0-36.0); MEAN CELL VOLUME 77.2 fl (80-96); MEAN PLT VOLUME 8.4 fl (7.5-11.1); MONO % 7.1 % (3.8-10.2); NEUT % 72.2 % (42.8-82.8); PLATELET COUNT 272 10^3/uL (134-434); RBC 4.56 M/mm3 (3.60-5.2); RDW 14.9 % (11.6-15.6); WHITE BLOOD COUNT 12.2 K/mm3 (4.0-10.0)
[2021-02-05 23:16] LABS: BLOOD UREA NITROGEN 9.5 mg/dL (7-18); CALCIUM 8.4 mg/dL (8.5-10.1)
[2021-02-05 23:20] LABS: CREATININE 0.7 mg/dL (0.55-1.3)
[2021-02-06] MEDS ORDERED: LIDOCAINE HCL 1% PRESERVATIVE FREE - 30ML VIAL ONE (03:27)
[2021-02-06] MEDS ORDERED: OXYTOCIN 20 UNITS in 0.9% NS 20 UNIT/1,000 ML INFUS.BAG IV ONE ×2 (03:27→05:47)
[2021-02-06] MEDS ORDERED: OXYTOCIN 20 UNITS in 0.9% NS 20 UNIT/1,000 ML INFUS.BAG IV SCH (04:00)
[2021-02-06] MEDS ORDERED: WITCH HAZEL 50% (TUCKS) 40 PAD/JAR PAD TP PRN (11:11)
[2021-02-06] MEDS ORDERED: ACETAMINOPHEN 325 MG TABLET (FP) PO PRN (11:11)
[2021-02-06] MEDS ORDERED: BENZOCAINE 20% 57 GM BOTTLE TP PRN (11:11)
[2021-02-06] MEDS ORDERED: BENZOCAINE 28 GM HEMORRHOIDAL OINTMENT TP PRN (11:11)
[2021-02-06] MEDS ORDERED: BISACODYL 10 MG SUPP.RECT RC PRN (11:11)
[2021-02-06] MEDS ORDERED: METHYLERGONOVINE MALEATE 0.2 MG/1 ML AMP IM PRN (11:11)
[2021-02-06] MEDS: IBUPROFEN 600 MG TABLET (FP) PO PRN ×2 (11:36→21:30)
[2021-02-06 12:44] LABS: SYPHILIS W/ RPR CONF NON-REACTIVE (NONREACTIVE)
[2021-02-06 13:14] LABS: HIV INTERPRETATION NEGATIVE (NEGATIVE)
[2021-02-07] MEDS: IBUPROFEN 600 MG TABLET (FP) PO PRN ×3 (03:39→20:26)
[2021-02-07 08:50] LABS: BASO % 0.6 % (0-2.0); EOS % 0.7 % (0-4.5); HEMATOCRIT 29.9 % (32.4-45.2); HEMOGLOBIN 9.8 GM/dL (10.7-15.3); MCH 25.5 pg (25.7-33.7); MCHC 32.6 g/dl (32.0-36.0); MEAN PLT VOLUME 8.1 fl (7.5-11.1); MONO % 6.6 % (3.8-10.2); NEUT % 61.1 % (42.8-82.8); PLATELET COUNT 224 10^3/uL (134-434); RBC 3.84 M/mm3 (3.60-5.2); RDW 14.8 % (11.6-15.6); WHITE BLOOD COUNT 9.6 K/mm3 (4.0-10.0)
[2021-02-07] MEDS ORDERED: SENNOSIDES/DOCUSATE COMBO (SENNA PLUS) TABLET (UD) PO PRN (22:00)
[2021-02-08 10:44] VITALS: BP 137/82; PULSE 98; TEMP 98.2
== END 2021-02-08 11:30 | disposition home or self-care (01) | DRG 560 ==
LOC: JDEL 20:35 → JLDR 21:40 → J3W 02-06 06:15
PROVIDERS: ADMIT Obstetrics & Gynecology; ATTEND Obstetrics & Gynecology
PROC: 10E0XZZ Delivery of Products of Conception, External Approach (ICD-10-PCS; principal; 2021-02-06)
DX: O99.02 Anemia complicating childbirth (principal); D64.9 Anemia, unspecified; Z3A.38 38 weeks gestation of pregnancy; Z37.0 Single live birth
CPT/HCPCS: 36415; 59409; 80048; 85025; 85730; 86780; 86850; 86900; 86901; 87389; C9803; U0003; U0005

== ENCOUNTER 2022-07-07 06:00 | Inpatient (IN) | payer OTHER ==
[2022-07-07 06:56] VITALS: BMI 36.0
[2022-07-07 07:17] LABS: BASO % 0.4 % (0-2.0); EOS % 0.5 % (0-4.5); HEMATOCRIT 33.5 % (32.4-45.2); HEMOGLOBIN 11.2 GM/dL (10.7-15.3); LYMPH % 12.4 % (8-40); MCH 24.3 pg (25.7-33.7); MCHC 33.5 g/dl (32.0-36.0); MEAN CELL VOLUME 72.5 fl (80-96); MEAN PLT VOLUME 8.7 fl (7.5-11.1); MONO % 4.3 % (3.8-10.2); NEUT % 82.4 % (42.8-82.8); PLATELET COUNT 237 10^3/uL (134-434); RBC 4.63 M/mm3 (3.60-5.2); RDW 15.5 % (11.6-15.6); WHITE BLOOD COUNT 10.6 K/mm3 (4.0-10.0)
[2022-07-07 07:24] LABS: INR 0.98 (0.83-1.09); PROTHROMBIN TIME (PATIENT) 11.4 SEC (9.7-13.0)
[2022-07-07 07:27] LABS: ACTIVATED PTT 28.2 SECONDS (25.2-36.5)
[2022-07-07] MEDS ORDERED: NIFEdipine 10 MG CAPSULE (FP) ONE (07:54)
[2022-07-07 07:55] LABS: CALCIUM 9.2 mg/dL (8.5-10.1)
[2022-07-07 07:58] LABS: CREATININE 0.8 mg/dL (0.55-1.3)
[2022-07-07] MEDS ORDERED: NIFEdipine 10 MG CAPSULE (FP) PO ONE (08:15)
[2022-07-07] MEDS ORDERED: ELECTROLYTE-148 SOLN 1,000 ML IV SCH (08:15)
[2022-07-07] MEDS ORDERED: FENTANYL/BUPIVACAINE/NS/PF - PCEA - 50 ML DISP.SYRIN EP ONE ×2 (08:23→12:37)
[2022-07-07] MEDS ORDERED: NALOXONE HCL 0.4 MG/ML VIAL IVPUSH PRN (09:02)
[2022-07-07] MEDS ORDERED: FENTANYL/BUPIVACAINE/NS/PF - PCEA - 50 ML DISP.SYRIN EP SCH (09:15)
[2022-07-07 09:23] LABS: EPI CELLS 22 /uL (0-25.1); HYALINE CASTS 1 /uL (0-3.1); PH,URINE 5.5 (5.0-8.0); URINE APPEARANCE CLEAR; URINE BACTERIA 646 /uL (0-1359); URINE BILIRUBIN NEGATIVE (NEGATIVE); URINE COLOR YELLOW; URINE GLUCOSE (UA) NEGATIVE (NEGATIVE); URINE KETONE 4+ (NEGATIVE); URINE LEUK ESTERASE 1+ (NEGATIVE); URINE NITRITE NEGATIVE (NEGATIVE); URINE PROTEIN 2+ (NEGATIVE); URINE RBC 10 /uL (0-23.9); URINE WBC 239 /uL (0-25.8)
[2022-07-07 09:48] LABS: URIC ACID 5.6 mg/dL (2.6-7.2)
[2022-07-07 10:38] VITALS: RESP 18
[2022-07-07] MEDS ORDERED: OXYTOCIN 20 UNITS in 0.9% NS 20 UNIT/1,000 ML INFUS.BAG IV ONE (12:44)
[2022-07-07] MEDS ORDERED: BENZOCAINE 20% 57 GM BOTTLE TP PRN (14:47)
[2022-07-07] MEDS ORDERED: oxyCODONE HCL 5 MG TABLET PO PRN (14:47)
[2022-07-07] MEDS ORDERED: BISACODYL 10 MG SUPP.RECT RC PRN (14:47)
[2022-07-07] MEDS ORDERED: METHYLERGONOVINE MALEATE 0.2 MG/1 ML AMP IM PRN (14:47)
[2022-07-07] MEDS ORDERED: WITCH HAZEL 50% (TUCKS) 40 PAD/JAR PAD TP PRN (14:47)
[2022-07-07] MEDS ORDERED: BENZOCAINE 28 GM HEMORRHOIDAL OINTMENT TP PRN (14:47)
[2022-07-07] MEDS ORDERED: OXYTOCIN 20 UNITS in 0.9% NS 20 UNIT/1,000 ML INFUS.BAG IV SCH (15:00)
[2022-07-07 15:24] LABS: CORD HCO3 20.9 mmHg (20-29); CORD PCO2 53.7 mmHg (30-78); CORD pH 7.208 (7.14-7.44)
[2022-07-07 15:26] LABS: CORD BASE EXCESS -7.2 mmol/L (0-2); CORD HCO3 18.3 mmHg (20-29); CORD PCO2 37.1 mmHg (30-78); CORD pH 7.311 (7.14-7.44)
[2022-07-07] MEDS: NIFEdipine E.R. 30 MG TABLET PO SCH (16:41)
[2022-07-07] MEDS: ACETAMINOPHEN 325 MG TABLET (FP) PO PRN (20:02)
[2022-07-08] MEDS: ACETAMINOPHEN 325 MG TABLET (FP) PO PRN (05:30)
[2022-07-08] MEDS: IBUPROFEN 600 MG TABLET (FP) PO PRN ×2 (07:48→14:43)
[2022-07-08 08:41] LABS: BASO % 0.4 % (0-2.0); EOS % 0.5 % (0-4.5); HEMATOCRIT 32.2 % (32.4-45.2); HEMOGLOBIN 10.5 GM/dL (10.7-15.3); LYMPH % 21.5 % (8-40); MCH 23.6 pg (25.7-33.7); MCHC 32.6 g/dl (32.0-36.0); MEAN CELL VOLUME 72.3 fl (80-96); MONO % 8.5 % (3.8-10.2); NEUT % 69.1 % (42.8-82.8); PLATELET COUNT 221 10^3/uL (134-434); RBC 4.46 M/mm3 (3.60-5.2); RDW 15.6 % (11.6-15.6)
[2022-07-08] MEDS: NIFEdipine E.R. 30 MG TABLET PO SCH (09:26)
[2022-07-08] MEDS: LORATADINE 10 MG TABLET PO SCH (14:20)
[2022-07-08] MEDS ORDERED: guaiFENesin/D-METHORPHAN HB 10 ML UNIT-DOSE CUPS PO PRN (20:56)
[2022-07-08] MEDS ORDERED: SENNOSIDES/DOCUSATE COMBO (SENNA PLUS) TABLET (UD) PO PRN (22:00)
[2022-07-09] MEDS: IBUPROFEN 600 MG TABLET (FP) PO PRN (06:09)
[2022-07-09] MEDS: NIFEdipine E.R. 30 MG TABLET PO SCH (09:40)
[2022-07-09] MEDS: ACETAMINOPHEN 325 MG TABLET (FP) PO PRN (09:40)
[2022-07-09] MEDS: LORATADINE 10 MG TABLET PO SCH (09:40)
[2022-07-09 09:51] VITALS: BP 132/89; PULSE 82; TEMP 98
== END 2022-07-09 17:00 | disposition home or self-care (01) | DRG 560 ==
LOC: JDEL 06:00 → JLDR 06:40 → J3W 16:28
PROVIDERS: ADMIT Obstetrics & Gynecology; ATTEND Obstetrics & Gynecology
PROC: 10E0XZZ Delivery of Products of Conception, External Approach (ICD-10-PCS; principal; 2022-07-07)
DX: O24.420 Gestational diabetes mellitus in childbirth, diet controlled (principal); Z3A.38 38 weeks gestation of pregnancy; Z37.0 Single live birth
CPT/HCPCS: 36415; 36600; 80048; 81003; 82803; 82962; 82977; 83010; 84450; 84460; 84550; 85025; 85032; 85045; 85610; 85730; 86780; 86850; 86900; 86901; C9803-CS; U0003; U0005

== ENCOUNTER 2022-07-12 20:17 | Emergency (ER) | payer OTHER ==
[2022-07-12 20:30] VITALS: TEMP 98.9; BMI 33.0
[2022-07-12 21:12] LABS: HEMATOCRIT 34.1 % (32.4-45.2); HEMOGLOBIN 10.9 G/dL (10.7-15.3); MCH 24.1 pg (25.7-33.7); MCHC 31.9 g/dl (32.0-36.0); MEAN CELL VOLUME 75.5 fl (80-96); MEAN PLT VOLUME 8.4 fl (7.5-11.1); RBC 4.52 10^6/uL (3.60-5.2); RDW 17.6 % (11.6-15.6); WHITE BLOOD COUNT 7.3 10^3/uL (4.0-10.8)
[2022-07-12] MEDS ORDERED: LABETALOL HCL 5 MG/1 ML (100MG/20 ML VIAL) IVPUSH ONE (21:18)
[2022-07-12 21:25] LABS: PLATELET ESTIMATE ADEQUATE
[2022-07-12 21:27] LABS: ALBUMIN 2.8 g/dl (3.4-5.0); BILIRUBIN,TOTAL 0.4 mg/dl (0.2-1); CALCIUM 8.3 mg/dl (8.5-10); CREATININE 0.9 mg/dl (0.55-1.3); MAGNESIUM 2.2 mg/dL (1.8-2.4); PHOSPHOROUS 3.4 mg/dl (2.5-4.9); TOT PROT 6.4 g/dl (6.4-8.2); URIC ACID 6.9 mg/dl (2.6-7.2)
[2022-07-12 22:09] LABS: EPITHELIAL CELLS FEW /hpf
[2022-07-12 22:29] VITALS: BP 132/97; PULSE 103; RESP 15
== END 2022-07-12 23:03 | disposition home or self-care (01) ==
LOC: FER 20:17
DX: O99.893 Other specified diseases and conditions complicating puerperium (principal); R03.0 Elevated blood-pressure reading, without diagnosis of hypertension
CPT/HCPCS: 36415; 80053; 81003; 81015; 83615; 83735; 84100; 84550; 85027; 87086; 99283-25

== ENCOUNTER 2022-12-09 03:56 | Emergency (ER) | payer OTHER ==
[2022-12-09 04:02] VITALS: TEMP 98.8; BMI 30.5
[2022-12-09] MEDS ORDERED: ALPRAZolam 1 MG TABLET PO PRN (04:13)
[2022-12-09] MEDS ORDERED: ALPRAZolam 0.25 MG TABLET ONE (04:22)
[2022-12-09 04:52] VITALS: BP 137/91; PULSE 96; RESP 16
== END 2022-12-09 05:00 | disposition home or self-care (01) ==
LOC: FER 03:56
DX: R25.1 Tremor, unspecified (principal); R00.2 Palpitations; F41.9 Anxiety disorder, unspecified
CPT/HCPCS: 99283-25

== ENCOUNTER 2024-09-27 15:35 | Emergency (ER) | payer OTHER ==
[2024-09-27 15:44] VITALS: TEMP 98.6; BMI 25.6
[2024-09-27 17:12] LABS: ABSOLUTE IMMATURE GRANULOCYTES 0.01 x10^3/uL (0.0-0.031); BASOPHILS # 0.03 x10^3/uL (0.01-0.08); EOSINOPHIL % 0.7 % (0.7-5.8); EOSINOPHILS # 0.05 x10^3/uL (0.04-0.36); MCHC 33.0 g/dl (32.2-35.5); MEAN CELL VOLUME 85.1 fl (79.4-94.8); MEAN PLT VOLUME 9.5 fl (9.4-12.3); MONOCYTE # 0.32 x10^3/uL (0.24-0.86); MONOCYTE % 4.4 % (4.7-12.5); RDW 12.7 % (12.1-16.8)
[2024-09-27 17:18] LABS: INR 1.11 (0.83-1.09); PROTHROMBIN TIME (PATIENT) 12.1 SEC (9.7-13.0)
[2024-09-27 17:20] LABS: ACTIVATED PTT 35.4 SECONDS (25.2-36.5)
[2024-09-27 17:36] LABS: CO2 24 mmol/L (21-32); GLUCOSE,RANDOM 80 mg/dL (74-106)
[2024-09-27 17:40] LABS: CREATININE 0.9 mg/dL (0.55-1.3); SGOT/AST 11 U/L (15-37); SGPT/ALT 25 U/L (13-61)
[2024-09-27 17:42] LABS: TOT PROT 7.6 g/dl (6.4-8.2)
[2024-09-27 17:43] LABS: ALK PHOS 80 U/L (45-117)
[2024-09-27 18:34] LABS: HCV DIAGNOSTIC IN-HOUSE W/RFLX NON-REACTIVE (NONREACTIVE)
[2024-09-27 18:36] LABS: HIV INTERPRETATION NEGATIVE (NEGATIVE)
[2024-09-27 20:17] VITALS: BP 124/78; PULSE 84; RESP 16
== END 2024-09-27 20:51 | disposition home or self-care (01) ==
LOC: JER 15:35
DX: R10.13 Epigastric pain (principal); R06.02 Shortness of breath; R07.81 Pleurodynia
CPT/HCPCS: 36415; 71275-TC; 80053; 83735; 84702; 85025; 85610; 85730; 86803; 87389; 93005; 93010; 99285-25; Q9967